=== PATIENT | male | born 1995 | race Caucasian/White ===

== ENCOUNTER 2017-04-24 20:38 | Emergency (ER) | payer BC ==
[2017-04-24] MEDS ORDERED: Ketorolac 30 MG/ML SDV IVPUSH ONE (21:11)
[2017-04-24] MEDS ORDERED: Sodium Chloride 0.9% 10 ML Syringe FLUSH PRN (21:11)
[2017-04-24] MEDS ORDERED: Sodium Chloride 0.9% 1,000 ML IV SCH (21:15)
[2017-04-24] MEDS ORDERED: Iopamidol 755 Mg/ML 100 ML Bottle IV ONE (21:34)
[2017-04-24 23:49] VITALS: BP 122/72
--- NOTE | 2017-04-25 01:00 | ER ---
DATE SEEN: 04/24/2017 CHIEF COMPLAINT: Abdominal pain. HISTORY OF PRESENT ILLNESS: A 22-year-old male complaining of abdominal discomfort on and off for 3-5 months. He had a diarrhea sometimes bloody, pain is moderate to severe. REVIEW OF SYSTEMS: No urinary symptoms. Denies any nausea or vomiting. No chest pain. PAST MEDICAL HISTORY: Healthy with no active medical problems. SOCIAL HISTORY: Noncontributory. PHYSICAL EXAMINATION: GENERAL: Well-nourished and hydrated. VITAL SIGNS: Normal. ENT: Negative. CHEST: Clear. ABDOMEN: Soft, mild tenderness in the suprapubic area. No rebound or rigidity. LABORATORY DATA: White cell count is normal. Potassium is 3.1. UA negative. CT of the abdomen and pelvis was negative except some colitis. IMPRESSION: Colitis of unknown reason. PLAN: One liter of normal saline, IV Toradol, sent home. Followup for colonoscopy with Dr. Langley. /[id number] MAUDE/BEKAH
== END 2017-04-24 23:50 | disposition home or self-care (01) ==
LOC: FB.ED 20:38
DX: K52.9 Noninfective gastroenteritis and colitis, unspecified (principal)
CPT/HCPCS: 36415; 74177; 80053; 81001; 85025; 96361; 96374; 99284; J1885; J7040; J7050; Q9967

== ENCOUNTER 2017-09-04 15:47 | Emergency (ER) | payer BC, OTHER ==
[2017-09-04] MEDS ORDERED: Ondansetron 4 MG/2 ML SDV IVPUSH ONE (16:25)
[2017-09-04] MEDS ORDERED: fentaNYL 100 MCG/2 ML SDV IVPUSH ONE (16:25)
[2017-09-04] MEDS ORDERED: Sodium Chloride 0.9% 1,000 ML IV SCH ×2 (16:30→17:15)
[2017-09-04] MEDS ORDERED: Diphtheria,Pertussis(Acell),Tetanus Vaccine 0.5 ML SDV IM ONE (16:41)
[2017-09-04] MEDS ORDERED: HYDROmorphone 2 MG/ML SDV IVPUSH ONE (17:12)
[2017-09-04 17:53] VITALS: BP 140/68
[2017-09-04] MEDS ORDERED: Acetaminophen 500 MG Tab PO ONE (18:33)
[2017-09-04] MEDS ORDERED: Ibuprofen 800 MG Tab PO ONE (18:34)
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
== END 2017-09-04 18:42 | disposition home or self-care (01) ==
LOC: FB.ED 15:47
DX: S06.0X9A Concussion with loss of consciousness of unspecified duration, initial encounter (principal); S16.1XXA Strain of muscle, fascia and tendon at neck level, initial encounter; S29.012A Strain of muscle and tendon of back wall of thorax, initial encounter; S39.012A Strain of muscle, fascia and tendon of lower back, initial encounter; S00.81XA Abrasion of other part of head, initial encounter; F17.210 Nicotine dependence, cigarettes, uncomplicated; Z23 Encounter for immunization; V58.5XXA Driver of pick-up truck or van injured in noncollision transport accident in traffic accident, initial encounter
CPT/HCPCS: 36415; 70450; 71010; 72125; 72128; 72131; 73020; 80053; 85025; 90471; 90715; 96361; 96374; 96375; 99285; G0480; J1170; J2405; J3010; J7040